=== PATIENT | female | born 1940 | race Caucasian/White ===

== ENCOUNTER → 2019-03-26 | Outpatient (CLI) | payer MEDICARE, OTHER ==
--- NOTE | 2019-03-26 16:47 | Diagnostic Imaging Report ---
PROCEDURE: US carotid duplex, bilateral. TECHNIQUE: Multiple real-time grayscale images were obtained over the carotid arteries in various projections, bilaterally. Additional spectral analysis and color Doppler duplex images were also obtained. INDICATION: 79 year-old female with history of myocardial infarction, high blood pressure, dizziness and weakness. COMPARISON: None available. FINDINGS: Right carotid circulation: The right common carotid artery is normal in caliber, and there is no significant stenosis. Peak systolic velocity in the right common carotid artery is 108 cm/sec. There is a small amount of calcified plaque in the carotid bulb and proximal internal carotid artery, which results in less than 50% luminal narrowing by weinberg scale imaging. The peak systolic velocity in the proximal internal carotid artery is 130 cm/sec. Proximal aspect of the external carotid artery is patent with expected high resistance waveforms, and peak systolic velocity of 138 cm/sec. Left carotid circulation: The left common carotid artery is normal in caliber, and there is no significant stenosis. Peak systolic velocity in the left common carotid artery is 102 cm/sec. There is a small amount of calcified atherosclerotic plaque in the carotid bulb and proximal internal carotid artery, which results in less than 50% luminal narrowing by weinberg scale imaging. The peak systolic velocity in the proximal internal carotid artery is 137 cm/sec. Proximal aspect of the external carotid artery is patent with expected high resistance waveforms, and peak systolic velocity of 138 cm/sec. Vertebral arteries: Flow in the bilateral vertebral arteries is antegrade. IMPRESSION: 1. There is 50-69% stenosis of the bilateral proximal internal carotid arteries due to calcified atherosclerotic plaquing. 2. Patent vertebral arteries with antegrade flow. Parameters based on the consensus panel Weinberg-Scale and Doppler ultrasound criteria published April 2003, Radiology, Volume 229. DOPPLER (peak systolic velocity M/S Right Left CCA 1.08 1.02 ICA Proximal 1.17 1.37 ICA Mid 1.13 1.20 ICA Distal 1.30 1.18 RATIO 1.2 1.3 ECA 1.38 1.38 VERT .62 .83 Dictated by: Dictated on workstation # [id number]
== END ==
LOC: RAD 11:54
PROVIDERS: ATTEND Nurse Practitioner Family
DX: I65.23 Occlusion and stenosis of bilateral carotid arteries (principal); I25.2 Old myocardial infarction; L98.8 Other specified disorders of the skin and subcutaneous tissue
CPT/HCPCS: 93880